=== PATIENT | male | born 1980 | race Caucasian/White ===

== ENCOUNTER 2017-11-14 07:54 | Emergency (ER) | payer OTHER ==
[2017-11-14] MEDS: TETRACAINE 0.5% 4 ML OPH RIGHT EYE (08:18)
[2017-11-14] MEDS: FLUORESCEIN STRIP RIGHT EYE (08:18)
[2017-11-14] MEDS: DIPHTH/TET/ACEL PERTUSS (ADULT) 0.5 ML VIAL IM* (08:20)
== END 2017-11-14 09:20 | disposition home or self-care (01) ==
LOC: FTE 07:54
DX: T15.01XA Foreign body in cornea, right eye, initial encounter (principal); X58.XXXA Exposure to other specified factors, initial encounter; Y92.89 Other specified places as the place of occurrence of the external cause; Z23 Encounter for immunization
CPT/HCPCS: 65220; 90471; 90715; 99283-25

== ENCOUNTER 2018-11-02 10:47 | Emergency (ER) | payer OTHER | END 2018-11-02 12:18 | disposition home or self-care (01) | LOC: FTE 10:47 | DX: G56.03 Carpal tunnel syndrome, bilateral upper limbs (principal) | CPT/HCPCS: 29125; 99282-25 ==